=== PATIENT | male | born 1990 | race American Indian/Alaskan Native ===

== ENCOUNTER 2020-10-25 09:05 | Emergency (ER) | payer SELFPAY ==
[2020-10-25 09:10] VITALS: BP 125/77
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
== END 2020-10-25 11:42 | disposition home or self-care (01) ==
LOC: ED 09:05
DX: S62.337A Displaced fracture of neck of fifth metacarpal bone, left hand, initial encounter for closed fracture (principal); X58.XXXA Exposure to other specified factors, initial encounter; Y93.89 Activity, other specified; Y92.89 Other specified places as the place of occurrence of the external cause; Y99.8 Other external cause status
CPT/HCPCS: 99283

== ENCOUNTER 2022-07-14 10:23 | Emergency (ER) | payer SELFPAY ==
[2022-07-14 11:30] VITALS: BP 152/84
--- NOTE | 2022-07-14 14:15 | Emergency Department Report ---
Blank Doc - Documentation Documentation: As I entered the room, patient was not present. RN stated was brought back but unaware where the patient is. RN stated will try to reach patient at the phone number listed to come back to emergency room for further evaluation, treatment and appropriate disposition. At this time patient has eloped until further notice.
[2022-07-14] MEDS ORDERED: LIDOCAINE (2%) 20 MG/1 ML VIAL 20 ML MDV INFILTRATI ONE (17:20)
[2022-07-14] MEDS ORDERED: TETANUS,DIPH,PERTUSS(ACELL) VACCINE 0.5 ML SYRINGE IM ONE (17:20)
--- NOTE | 2022-07-14 17:59 | XRay Report ---
MANDIBLE 5 VIEW(S) INDICATION / CLINICAL INFORMATION: upper lip lac COMPARISON: None available. FINDINGS: BONES / JOINT(S): No acute fracture or subluxation. No significant arthritis. SOFT TISSUES: No significant abnormality. ADDITIONAL FINDINGS: None. Signer Name: Carlos Enrique Rodriguez DO Signed: 07/14/2022 5:55 PM Workstation Name: My [employer] App
--- NOTE | 2022-07-14 18:02 | Emergency Department Report ---
- General Chief Complaint: Wound/Laceration Stated Complaint: MOUTH SPLIT Time Seen by Provider: 07/14/22 14:12 Source: patient Mode of arrival: Ambulatory Limitations: No Limitations - History of Present Illness Initial Comments: This is a 31-year-old male nontoxic, well nourished in appearance, no acute signs of distress presents to the ED with c/o of left upper lip laceration that occurred this morning. Patient said that he had a mechanical trip and fall which injured the lip area. Denies any LOC. Denies any headaches. Denies any visual changes. Denies decrease mouth opening. Denies any other complaints or symptoms. Patient stated bleeding is under control. Denies any numbness, tingling, fever, chills, nausea, vomiting, chest pain, shortness of breath, headache or stiff neck. Patient denies any allergies to significant past medical history. Patient is that he is not up-to-date with tetanus. -: This morning Location: face 1 - [address]: outdoors Patient Tetanus UTD: No Context: fall Associated Symptoms: pain. denies: loss of feeling/numbness, suspect foreign body present, unable to move injured part, weakness followed by dizziness, nausea/vomiting, fever - Related Data Previous Rx's Medication Instructions Recorded Last Taken Type Ibuprofen [Motrin 600 MG tab] 600 mg PO Q8H PRN #30 tablet 10/25/20 Unknown Rx Sulfamethoxazole/Trimethoprim 1 each PO BID #14 tab 07/14/22 Unknown Rx [Bactrim DS TAB] Allergies Allergy/AdvReac Type Severity Reaction Status Date / Time acetaminophen [From Lortab] Allergy Swelling Verified 07/14/22 11:31 hydrocodone [From Lortab] Allergy Swelling Verified 07/14/22 11:31 ED Review of Systems ROS: Stated complaint: MOUTH SPLIT Other details as noted in HPI Comment: All other systems reviewed and negative Constitutional: denies: chills, fever Eyes: denies: eye pain, eye discharge, vision change ENT: denies: ear pain, throat pain Respiratory: denies: cough, shortness of breath, wheezing Cardiovascular: denies: chest pain, palpitations Endocrine: no symptoms reported Gastrointestinal: denies: abdominal pain, nausea, diarrhea Genitourinary: denies: urgency, dysuria Musculoskeletal: denies: back pain, joint swelling, arthralgia Skin: denies: rash, lesions Neurological: denies: headache, weakness, paresthesias Psychiatric: denies: anxiety, depression Hematological/Lymphatic: denies: easy bleeding, easy bruising ED Past Medical Hx - Surgical History Hx Appendectomy: Yes - Social History Smoking Status: Current Every Day Smoker Substance Use Type: Alcohol, Marijuana - Medications Home Medications: Home Medications Medication Instructions Recorded Confirmed Last Taken Type Ibuprofen [Motrin 600 MG tab] 600 mg PO Q8H PRN #30 tablet 10/25/20 Unknown Rx Sulfamethoxazole/Trimethoprim 1 each PO BID #14 tab 07/14/22 Unknown Rx [Bactrim DS TAB] ED Physical Exam - General Limitations: No Limitations General appearance: alert, in no apparent distress - Head Head exam: Present: normocephalic - Expanded Head Exam Expanded Head exam: Present: laceration 1 - 3 cm lac present here - Eye Eye exam: Present: normal appearance, PERRL, EOMI - ENT ENT exam: Present: normal exam, normal orophraynx - Neck Neck exam: Present: normal inspection, full ROM. Absent: tenderness, meningismus, lymphadenopathy - Respiratory Respiratory exam: Absent: respiratory distress - Cardiovascular Cardiovascular Exam: Present: regular rate - Extremities Exam Extremities exam: Present: normal inspection, full ROM. Absent: tenderness - Back Exam Back exam: Present: normal inspection, full ROM. Absent: tenderness, CVA tenderness (R), CVA tenderness (L), muscle spasm, paraspinal tenderness, vertebral tenderness, rash noted - Neurological Exam Neurological exam: Present: alert, oriented X3, normal gait - Expanded Neurological Exam Expanded Patient oriented to: Present: person, place, time Cranial nerves: EOM's Intact: Normal, Facial Sensation: Normal Cerebellar function: Finger to Nose: Normal Upper motor neuron: Pronator Drift: Normal, Sensory Extinction: Normal Motor strength exam: RUE: 5, LUE: 5, RLE: 5, LLE: 5 Best Eye Response (Jas): (4) open spontaneously Best Motor Response (Jas): (6) obeys commands Best Verbal Response (Meridian): (5) oriented Jas Total: 15 - Psychiatric Psychiatric exam: Present: normal affect, normal mood - Skin Skin exam: Present: warm, dry, intact, normal color. Absent: rash ED Course Vital Signs 07/14/22 11:26 Pulse Rate 108 H Respiratory 18 Rate Blood Pressure 152/84 [Left] O2 Sat by Pulse 99 Oximetry - Reevaluation(s) Reevaluation #1: 07/14/22 18:02 Patient is speaking in full sentences with no signs of distress noted. - Laceration /Wound Repair Face Wound Location: face (left upper lip) Wound Length (cm): 4 Wound's Depth, Shape: irregular Wound Explored: clean Irrigated w/ Saline (ccs): 40 Volume Anesthetic (ccs): 6 (2% lidocaine plain) Wound Repaired With: sutures Suture Size/Type: 6:0, proline Number of Sutures: 7 Layer Closure?: Yes Deep Layer Suture Size/Type: 4:0 (Vicryl) Number Deep Layer Sutures: 2 Sterile Dressing Applied?: Yes Progress: Under sterile field, I used Betadine to clean the area. I then used 40 mL of normal saline to flush the area. I then used 2% lidocaine plain and injected 6 mL to the wound. I then used a 3-0 Vicryl with total of [address] for deeper dermis. I then used a 6-0 Prolene to suture the laceration. Number of stitches 7. I then applied a sterile 4 x 4 with tape. Minimal bleeding noted but is under control. Patient tolerated procedure well with no signs of distress. ED Medical Decision Making - Radiology Data [facility] [address] [place] [address] XRay Report Signed Patient: COLETTE POWERS MR#: [id number] : 1990 Acct:[id number] Age/Sex: 31 / M ADM Date: 07/14/22 Loc: ED Attending Dr: Ordering Physician: HUEY MUKHERJEE NP Date of Service: 07/14/22 Procedure(s): XR mandible <4V Accession Number(s): [id number] cc: HUEY MUKHERJEE NP Fluoro Time In Minutes: MANDIBLE 5 VIEW(S) INDICATION / CLINICAL INFORMATION: upper lip lac COMPARISON: None available. FINDINGS: BONES / JOINT(S): No acute fracture or subluxation. No significant arthritis. SOFT TISSUES: No significant abnormality. ADDITIONAL FINDINGS: None. Signer Name: Carlos Enrique Otto DO Signed: 07/14/2022 5:55 PM Workstation Name: [id number] Transcribed By: ALOK Dictated By: CARLOS ENRIQUE OTTO DO Electronically Authenticated By: CARLOS ENRIQUE OTTO DO Signed Date/Time: 07/14/221754 DD/ 53 TD/TT: - Medical Decision Making This is a 31-year-old male that presents with laceration. Patient is stable and was examined by me. The laceration suturing has been performed and has been performed and patient tolerated well. A sterile dressing has been applied. Patient was educated on proper wound care. Patient is discharged with Bactrim. Patient was instructed to return in 10 days for suture removal. Patient was instructed to refer to Follow-up with a primary care doctor in 3-5 days or if symptoms worsen and continue return to emergency room as soon as possible. At time of discharge, the patient does not seem toxic or ill in appearance. No acute signs of distress noted. Patient agrees to discharge treatment plan of care. No further questions noted by the patient. Critical care attestation.: If time is entered above; I have spent that time in minutes in the direct care of this critically ill patient, excluding procedure time. ED Disposition Clinical Impression: Laceration Disposition: 01 HOME / SELF CARE / HOMELESS Is pt being admited?: No Does the pt Need Aspirin: No Condition: Stable Instructions: Laceration Care, Adult Additional Instructions: Follow-up with a primary care doctor in 3-5 days or if symptoms worsen and continue return to emergency room as soon as possible. Return in 10 days for suture removal. Prescriptions: Sulfamethoxazole/Trimethoprim [Bactrim DS TAB] 1 each PO BID #14 tab Referrals: PRIMARY MD STUART [Primary Care Provider] - 3-5 Days LAWRENCE MOULTON MD [Staff Physician] - 3-5 Days Forms: Work/School Release Form(ED) Time of Disposition: 18:43
== END 2022-07-14 19:06 | disposition home or self-care (01) ==
LOC: ED 10:23
DX: S01.511A Laceration without foreign body of lip, initial encounter (principal); F17.200 Nicotine dependence, unspecified, uncomplicated; F12.90 Cannabis use, unspecified, uncomplicated; Z72.89 Other problems related to lifestyle; Z90.49 Acquired absence of other specified parts of digestive tract; Z88.6 Allergy status to analgesic agent; Z88.5 Allergy status to narcotic agent; Z79.899 Other long term (current) drug therapy; W18.39XA Other fall on same level, initial encounter; Y93.89 Activity, other specified; Y92.89 Other specified places as the place of occurrence of the external cause; Y99.8 Other external cause status
CPT/HCPCS: 12013; 70100; 99283; J3490

== ENCOUNTER 2022-07-25 10:14 | Emergency (ER) | payer SELFPAY ==
[2022-07-25 10:41] VITALS: BP 136/73
== END 2022-07-25 16:03 | disposition left against medical advice (07) ==
LOC: ED 10:14
DX: S01.511D Laceration without foreign body of lip, subsequent encounter (principal); Z53.21 Procedure and treatment not carried out due to patient leaving prior to being seen by health care provider; X58.XXXD Exposure to other specified factors, subsequent encounter

== ENCOUNTER 2022-07-28 03:54 | Emergency (ER) | payer SELFPAY | END 2022-07-28 19:00 | disposition left against medical advice (07) | LOC: ED 03:54 | DX: Z48.02 Encounter for removal of sutures (principal); Z53.21 Procedure and treatment not carried out due to patient leaving prior to being seen by health care provider ==